=== PATIENT | female | born 1990 | race Caucasian/White ===

== ENCOUNTER 2017-07-17 20:11 | Emergency (ER) | payer BC, OTHER ==
[2017-07-17] MEDS ORDERED: Fluorescein Opthalmic Strip ONE (20:27)
[2017-07-17] MEDS ORDERED: Proparacaine 0.5% Opth 15 ML BOT ONE (20:27)
== END 2017-07-17 20:55 | disposition home or self-care (01) ==
LOC: ERS 20:11
DX: H10.9 Unspecified conjunctivitis (principal); Z79.899 Other long term (current) drug therapy
CPT/HCPCS: 99282

== ENCOUNTER 2017-10-31 14:51 | Emergency (ER) | payer BC ==
[2017-10-31] MEDS ORDERED: Proparacaine 0.5% Opth 15 ML BOT ONE (15:57)
[2017-10-31] MEDS ORDERED: Fluorescein Opthalmic Strip ONE (15:57)
== END 2017-10-31 16:46 | disposition home or self-care (01) ==
LOC: ERS 14:51
DX: S05.02XA Injury of conjunctiva and corneal abrasion without foreign body, left eye, initial encounter (principal); E03.9 Hypothyroidism, unspecified; E11.9 Type 2 diabetes mellitus without complications; X58.XXXA Exposure to other specified factors, initial encounter
CPT/HCPCS: 99283

== ENCOUNTER 2018-10-29 15:23 | Emergency (ER) | payer BC, SELFPAY | END 2018-10-29 16:52 | disposition home or self-care (01) | LOC: ERS 15:23 | DX: J06.9 Acute upper respiratory infection, unspecified (principal); E03.9 Hypothyroidism, unspecified; Z87.891 Personal history of nicotine dependence; Z79.899 Other long term (current) drug therapy | CPT/HCPCS: 99283 ==